=== PATIENT | male | born 1965 | race African-American/Black ===

== ENCOUNTER 2017-01-21 14:06 | Inpatient (IN) | payer OTHER ==
[2017-01-21 15:20] VITALS: BMI 28.7
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
[2017-01-21] MEDS ORDERED: MAG HYDROX/AL HYDROX/SIMETH 30 ML UNIT-DOSE CUP PO PRN (17:52)
[2017-01-21] MEDS ORDERED: hydrOXYzine PAMOATE 50 MG CAPSULE (FP) PO PRN (17:52)
[2017-01-21] MEDS ORDERED: chlordiazePOXIDE HCL 25 MG CAPSULE PO ONE (17:52)
[2017-01-21] MEDS ORDERED: guaiFENesin/D-METHORPHAN HB 10 ML UNIT-DOSE CUPS PO PRN (17:52)
[2017-01-21] MEDS ORDERED: chlordiazePOXIDE HCL 25 MG CAPSULE PO PRN (17:52)
[2017-01-21] MEDS ORDERED: MENTHOL/PHENOL 1 EACH UD MM PRN (17:52)
[2017-01-21] MEDS ORDERED: P-EPHED 60MG/TRIPROLIDI 2.5MG TABLET PO PRN (17:52)
[2017-01-21] MEDS ORDERED: IBUPROFEN 400 MG TABLET (FP) PO PRN (17:52)
[2017-01-21] MEDS ORDERED: MAGNESIUM CITRATE 300 ML BOTTLE PO PRN (17:52)
[2017-01-21] MEDS ORDERED: LOPERAMIDE HCL 2 MG CAPSULE PO PRN (17:52)
[2017-01-21] MEDS ORDERED: ACETAMINOPHEN 325 MG TABLET (FP) PO PRN (17:52)
[2017-01-21] MEDS ORDERED: MAGNESIUM HYDROX 2400MG/30ML ORAL SUSPENSION 30 ML CUP PO PRN (17:52)
[2017-01-21] MEDS ORDERED: NITROGLYCERIN SUBLINGUAL 1/150 0.4 MG TAB SL PRN (17:55)
[2017-01-21] MEDS ORDERED: ALBUTEROL SO4 2.5/IPRATROPIUM 0.5 INH SOL 3 ML VIAL.NEB. NEB SCH (18:00)
[2017-01-21] MEDS ORDERED: ALBUTEROL SO4 2.5/IPRATROPIUM 0.5 INH SOL 3 ML VIAL.NEB. NEB PRN (18:22)
[2017-01-21] MEDS: FUROSEMIDE 40 MG TABLET (FP) PO SCH (19:05)
[2017-01-21] MEDS: LISINOPRIL 10 MG TABLET (FP) PO SCH (19:05)
[2017-01-21] MEDS: ALBUTEROL SO4 2.5/IPRATROPIUM 0.5 INH SOL 3 ML VIAL.NEB. NEB SCH ×2 (19:07→23:40)
[2017-01-21] MEDS: BUDESONIDE/FORMETEROL FUMARATE 160/4.5 mcg INHALER IH SCH (22:11)
[2017-01-21] MEDS: TAMSULOSIN HCL 0.4 MG CAP.ER.24H (FP) PO SCH (22:11)
[2017-01-21] MEDS: ATORVASTATIN CA 40 MG TABLET (FP) PO SCH (22:11)
[2017-01-21] MEDS: chlordiazePOXIDE HCL 25 MG CAPSULE PO SCH (22:11)
[2017-01-21] MEDS: THIAMINE HCL 100 MG TABLET (FP) PO SCH (22:11)
[2017-01-21] MEDS: diphenhydrAMINE HCL 50 MG CAPSULE PO PRN (22:12)
[2017-01-21] MEDS: RANITIDINE HCL 150 MG TABLET (FP) PO SCH (22:12)
[2017-01-22] MEDS: chlordiazePOXIDE HCL 25 MG CAPSULE PO SCH ×4 (05:46→22:09)
--- NOTE | 2017-01-22 09:47 | CONSULT ---
[facility] Psychiatric Consult - Data Date of interview: 01/22/17 Admission source: [facility] Identifying data: This is 51 years old male with no psychiatric hospitalization history intoxicated with : Alcohol and Nicotine Substance Abuse History: - Smoking Cessation. Smoking history: Former smoker. Have you smoked in the past 12 months: No. Cigars Per Day: 0. Hx Chewing Tobacco Use: No. Initiated information on smoking cessation: No. - Substance & Tx. History. Hx Alcohol Use: Yes. Hx Substance Use: No. Substance Use Type : Alcohol. Hx Substance Use Treatment: Yes (Detox). - Substances Abused. Alcohol. Route: Oral. Frequency: Daily. Amount used: Vodka 2 quarts, Beer 2( 6packs). Age of first use: 14. Date of Last Use: 01/21/17 Medical History: COPD, Sarcoidisis hisotry, Obesity, Syncope history, DM, HTN, Asthma Psychiatric History: Maria Eugeniamt reports history of depression, reports no medications taking at this point Physical/Sexual Abuse/Trauma History: Denies Additional Comment: Observation. Detox Unit Care Protocol Mental Status Exam - Mental Status Exam Alert and Oriented to: Person Cognitive Function: Fair Patient Appearance: Unkempt Mood: Sad Affect: Flat Patient Behavior: Sedated Speech Pattern: Delayed Voice Loudness: Mildly Soft/Quiet Thought Process: Circumstantial Thought Disorder: Being Controlled Hallucinations: Denies Suicidal Ideation: Denies Insight/Judgement: Fair Sleep: Difficulty falling asleep Appetite: Weight gain Muscle strength/Tone: Mild Hypotonicity Gait/Station: Shuffling Additional Comments: Observation. Detox Unit Care Protocol Psychiatric Findings - Problem List ([place] 1, 2,3) (1) Alcohol dependence Current Visit: No Status: Acute (2) Alcohol dependence with uncomplicated withdrawal Current Visit: No Status: Acute (3) Cocaine dependence Current Visit: No Status: Acute Qualifiers: Substance use status: uncomplicated Qualified Code(s): F14.20 - Cocaine dependence, uncomplicated (4) Depression Current Visit: No Status: Acute (5) nicotine dependence Current Visit: No Status: Acute (6) Drug-induced mood disorder Current Visit: Yes Status: Acute - Initial Treatment Plan Initial Treatment Plan: Observation. Detox Unit Care Protocol
[2017-01-22 10:04] LABS: MCH 28.7 pg (25.7-33.7); MCHC 32.4 g/dl (32.0-35.9); MEAN CELL VOLUME 88.5 fl (80-96); MEAN PLT VOLUME 11.5 fl (7.5-11.1); PLATELET COUNT 78 K/MM3 (134-434); RDW 15.6 % (11.9-15.9); WHITE BLOOD COUNT 2.1 K/mm3 (4.0-10.0)
[2017-01-22] MEDS: ASPIRIN 81 MG CHEWABLE TABLETS PO SCH (10:19)
[2017-01-22] MEDS: FUROSEMIDE 40 MG TABLET (FP) PO SCH (10:19)
[2017-01-22] MEDS: ALBUTEROL SO4 2.5/IPRATROPIUM 0.5 INH SOL 3 ML VIAL.NEB. NEB SCH ×3 (10:19→23:28)
[2017-01-22] MEDS: PRENATAL VITAMINS W/ FOLIC ACID TABLET (FP) PO SCH (10:19)
[2017-01-22] MEDS: RANITIDINE HCL 150 MG TABLET (FP) PO SCH ×2 (10:19→22:09)
[2017-01-22] MEDS: BUDESONIDE/FORMETEROL FUMARATE 160/4.5 mcg INHALER IH SCH ×2 (10:20→22:10)
[2017-01-22] MEDS: LISINOPRIL 10 MG TABLET (FP) PO SCH (10:20)
[2017-01-22 10:42] LABS: ALBUMIN 3.3 g/dl (3.4-5.0); ALK PHOS 93 U/L (45-117); ANION GAP 13 (8-16); BILIRUBIN,TOTAL 0.7 mg/dL (0.2-1.0); CALCIUM 8.8 mg/dL (8.5-10.1); CO2 27 mmol/L (21-32); COCKROFT - GAULT 95.1; CREATININE 1.2 mg/dL (0.7-1.3); GLUCOSE,RANDOM 212 mg/dL (74-106); SGOT/AST 72 U/L (15-37); SGPT/ALT 160 U/L (12-78); TOT PROT 6.4 g/dl (6.4-8.2)
--- NOTE | 2017-01-22 10:52 | PN ---
S CIWA - CIWA Score Nausea/Vomitin-No Nausea/No Vomiting Muscle Tremors: 4-Moderate,w/Arms Extend Anxiety: 4-Mod. Anxious/Guarded Agitation: 3 Paroxysmal Sweats: 3 Orientation: 0-Oriented Tacttile Disturbances: 0-None Auditory Disturbances: 0-None Visual Disturbances: 0-None Headache: 0-None Present CIWA-Ar Total Score: 14 BHS Progress Note (SOAP) Subjective: Anxiety,tremors,sweating,interrupted sleep,restless Objective: 01/22/17 10:51 Vital Signs - 8 hr 01/22/17 01/22/17 01/22/17 03:35 06:38 09:47 Temperature 97.4 F L 97.7 F Pulse Rate 83 95 H Respiratory 18 18 20 Rate Blood Pressure 115/84 114/75 Laboratory Tests 01/22/17 01/22/17 08:00 08:00 WBC 2.1 L D RBC 5.47 Hgb 15.7 D Hct 48.4 MCV 88.5 MCHC 32.4 RDW 15.6 D Plt Count 78 L D MPV 11.5 H Sodium 139 Potassium 3.5 D Chloride 99 labs noted Assessment: 01/22/17 10:52 Withdrawal sx. Plan: Continue detox
--- NOTE | 2017-01-22 11:32 | EKG ---
Test Reason : Blood Pressure : / mmHG Vent. Rate : 098 BPM Atrial Rate : 098 BPM P-R Int : 184 ms QRS Dur : 104 ms QT Int : 352 ms P-R-T Axes : 028 099 062 degrees QTc Int : 449 ms SINUS RHYTHM WITH SINUS ARRHYTHMIA WITH OCCASIONAL PREMATURE VENTRICULAR COMPLEXES RIGHTWARD AXIS NONSPECIFIC ST ABNORMALITY ABNORMAL ECG WHEN COMPARED WITH ECG OF 21-SEP-2011 20:11, PREMATURE VENTRICULAR COMPLEXES ARE NOW PRESENT Confirmed by ANTONINO FITZGERALD, MARTA ([id number]) on 01/22/2017 11:32:25 AM Referred By: Confirmed By:MARTA MUÑIZ MD
[2017-01-22] MEDS: ALBUTEROL SO4 6.7 GM HFA INHALER IH PRN ×2 (17:12→22:13)
[2017-01-22 17:15] LABS: URINE APPEARANCE CLEAR; URINE BILIRUBIN NEGATIVE (NEGATIVE); URINE BLOOD NEGATIVE (NEGATIVE); URINE COLOR LTYELLOW; URINE GLUCOSE (UA) 3+ (NEGATIVE); URINE KETONE NEGATIVE (NEGATIVE); URINE LEUK ESTERASE NEGATIVE (NEGATIVE); URINE NITRITE NEGATIVE (NEGATIVE); URINE PROTEIN NEGATIVE (NEGATIVE); URINE UROBILINOGEN NEGATIVE E.U./dl (0.2-1.0)
[2017-01-22] MEDS: TAMSULOSIN HCL 0.4 MG CAP.ER.24H (FP) PO SCH (22:09)
[2017-01-22] MEDS: THIAMINE HCL 100 MG TABLET (FP) PO SCH (22:09)
[2017-01-22] MEDS: ATORVASTATIN CA 40 MG TABLET (FP) PO SCH (22:09)
[2017-01-22] MEDS: diphenhydrAMINE HCL 50 MG CAPSULE PO PRN (22:09)
[2017-01-23] MEDS: chlordiazePOXIDE HCL 25 MG CAPSULE PO SCH ×3 (05:53→17:28)
[2017-01-23] MEDS: DOCUSATE SODIUM 100 MG CAPSULE (FP) PO SCH ×3 (05:53→22:13)
[2017-01-23] MEDS: ALBUTEROL SO4 2.5/IPRATROPIUM 0.5 INH SOL 3 ML VIAL.NEB. NEB SCH ×3 (05:54→18:52)
[2017-01-23] MEDS: ASPIRIN 81 MG CHEWABLE TABLETS PO SCH (10:14)
[2017-01-23] MEDS: PRENATAL VITAMINS W/ FOLIC ACID TABLET (FP) PO SCH (10:14)
[2017-01-23] MEDS: RANITIDINE HCL 150 MG TABLET (FP) PO SCH ×2 (10:14→22:13)
[2017-01-23] MEDS: LISINOPRIL 10 MG TABLET (FP) PO SCH (10:15)
[2017-01-23] MEDS: FUROSEMIDE 40 MG TABLET (FP) PO SCH (10:15)
[2017-01-23] MEDS: BUDESONIDE/FORMETEROL FUMARATE 160/4.5 mcg INHALER IH SCH ×2 (10:15→22:12)
[2017-01-23] MEDS: ALBUTEROL SO4 6.7 GM HFA INHALER IH PRN (10:15)
--- NOTE | 2017-01-23 11:02 | PN ---
S CIWA - CIWA Score Nausea/Vomitin-No Nausea/No Vomiting Muscle Tremors: 4-Moderate,w/Arms Extend Anxiety: 4-Mod. Anxious/Guarded Agitation: 3 Paroxysmal Sweats: 3 Orientation: 0-Oriented Tacttile Disturbances: 0-None Auditory Disturbances: 0-None Visual Disturbances: 0-None Headache: 0-None Present CIWA-Ar Total Score: 14 BHS Progress Note (SOAP) Subjective: Sweating,interrupted sleep,anxiety,tremors,restless Objective: 01/23/17 11:01 Vital Signs - 8 hr 01/23/17 01/23/17 06:38 09:45 Temperature 96.8 F L 95.5 F L Pulse Rate 94 H 94 H Respiratory 18 18 Rate Blood Pressure 124/81 114/71 Laboratory Tests 01/22/17 01/22/17 01/22/17 08:00 08:00 08:00 WBC 2.1 L D RBC 5.47 Hgb 15.7 D Hct 48.4 MCV 88.5 MCHC 32.4 RDW 15.6 D Plt Count 78 L D MPV 11.5 H Sodium 139 Potassium 3.5 D Chloride 99 Carbon Dioxide 27 Anion Gap 13 BUN 14 D Creatinine 1.2 D Creat Clearance w eGFR > 60 Random Glucose 212 H D Calcium 8.8 Total Bilirubin 0.7 D AST 72 H D ALT 160 H D Alkaline Phosphatase 93 Total Protein 6.4 Albumin 3.3 L Urine Color Urine Appearance Urine pH Ur Specific [place] Urine Protein Urine Glucose (UA) Urine Ketones Urine Blood Urine Nitrite Urine Bilirubin Urine Urobilinogen Ur Leukocyte Esterase RPR Titer Nonreactive 01/22/17 09:30 WBC RBC Hgb Hct MCV MCHC RDW Plt Count MPV Sodium Potassium Chloride Carbon Dioxide Anion Gap BUN Creatinine Creat Clearance w eGFR Random Glucose Calcium Total Bilirubin AST ALT Alkaline Phosphatase Total Protein Albumin Urine Color Ltyellow Urine Appearance Clear Urine pH 6.0 Ur Specific [place] 1.026 Urine Protein Negative Urine Glucose (UA) 3+ H Urine Ketones Negative Urine Blood Negative Urine Nitrite Negative Urine Bilirubin Negative Urine Urobilinogen Negative Ur Leukocyte Esterase Negative RPR Titer labs noted Assessment: 01/23/17 11:01 Withdrawal sx. Plan: Continue detox
[2017-01-23] MEDS: THIAMINE HCL 100 MG TABLET (FP) PO SCH (22:12)
[2017-01-23] MEDS: ATORVASTATIN CA 40 MG TABLET (FP) PO SCH (22:13)
[2017-01-23] MEDS: chlordiazePOXIDE 5 MG CAPSULE PO SCH (22:13)
[2017-01-23] MEDS: TAMSULOSIN HCL 0.4 MG CAP.ER.24H (FP) PO SCH (22:13)
[2017-01-23] MEDS: diphenhydrAMINE HCL 50 MG CAPSULE PO PRN (22:14)
[2017-01-24] MEDS: DOCUSATE SODIUM 100 MG CAPSULE (FP) PO SCH ×3 (06:01→22:17)
[2017-01-24] MEDS: chlordiazePOXIDE 5 MG CAPSULE PO SCH ×3 (06:01→17:13)
[2017-01-24] MEDS: RANITIDINE HCL 150 MG TABLET (FP) PO SCH ×2 (10:03→22:17)
[2017-01-24] MEDS: PRENATAL VITAMINS W/ FOLIC ACID TABLET (FP) PO SCH (10:03)
[2017-01-24] MEDS: FUROSEMIDE 40 MG TABLET (FP) PO SCH (10:04)
[2017-01-24] MEDS: ASPIRIN 81 MG CHEWABLE TABLETS PO SCH (10:04)
[2017-01-24] MEDS: ALBUTEROL SO4 2.5/IPRATROPIUM 0.5 INH SOL 3 ML VIAL.NEB. NEB SCH ×4 (10:04→23:16)
[2017-01-24] MEDS: BUDESONIDE/FORMETEROL FUMARATE 160/4.5 mcg INHALER IH SCH ×2 (10:05→22:16)
[2017-01-24] MEDS: LISINOPRIL 10 MG TABLET (FP) PO SCH (10:05)
--- NOTE | 2017-01-24 16:32 | PN ---
BHS Progress Note (SOAP) Subjective: Sweating,interrupted sleep,restless Objective: 01/24/17 16:31 Vital Signs - 8 hr 01/24/17 09:38 Temperature 97 F L Pulse Rate 90 Respiratory 20 Rate Blood Pressure 119/86 Laboratory Tests 01/22/17 01/22/17 01/22/17 08:00 08:00 08:00 WBC 2.1 L D RBC 5.47 Hgb 15.7 D Hct 48.4 MCV 88.5 MCHC 32.4 RDW 15.6 D Plt Count 78 L D MPV 11.5 H Sodium 139 Potassium 3.5 D Chloride 99 Carbon Dioxide 27 Anion Gap 13 BUN 14 D Creatinine 1.2 D Creat Clearance w eGFR > 60 Random Glucose 212 H D Calcium 8.8 Total Bilirubin 0.7 D AST 72 H D ALT 160 H D Alkaline Phosphatase 93 Total Protein 6.4 Albumin 3.3 L Urine Color Urine Appearance Urine pH Ur Specific [place] Urine Protein Urine Glucose (UA) Urine Ketones Urine Blood Urine Nitrite Urine Bilirubin Urine Urobilinogen Ur Leukocyte Esterase RPR Titer Nonreactive 01/22/17 09:30 WBC RBC Hgb Hct MCV MCHC RDW Plt Count MPV Sodium Potassium Chloride Carbon Dioxide Anion Gap BUN Creatinine Creat Clearance w eGFR Random Glucose Calcium Total Bilirubin AST ALT Alkaline Phosphatase Total Protein Albumin Urine Color Ltyellow Urine Appearance Clear Urine pH 6.0 Ur Specific [place] 1.026 Urine Protein Negative Urine Glucose (UA) 3+ H Urine Ketones Negative Urine Blood Negative Urine Nitrite Negative Urine Bilirubin Negative Urine Urobilinogen Negative Ur Leukocyte Esterase Negative RPR Titer labs noted Assessment: 01/24/17 16:31 Withdrawal sx. Plan: Continue detox
[2017-01-24] MEDS: THIAMINE HCL 100 MG TABLET (FP) PO SCH (22:16)
[2017-01-24] MEDS: TAMSULOSIN HCL 0.4 MG CAP.ER.24H (FP) PO SCH (22:17)
[2017-01-24] MEDS: ATORVASTATIN CA 40 MG TABLET (FP) PO SCH (22:17)
[2017-01-24] MEDS: chlordiazePOXIDE HCL 10 MG CAPSULE PO SCH (22:17)
[2017-01-24] MEDS: diphenhydrAMINE HCL 50 MG CAPSULE PO PRN (22:17)
[2017-01-24] MEDS: ALBUTEROL SO4 6.7 GM HFA INHALER IH PRN (22:19)
[2017-01-25] MEDS: chlordiazePOXIDE HCL 10 MG CAPSULE PO SCH (05:49)
[2017-01-25] MEDS: DOCUSATE SODIUM 100 MG CAPSULE (FP) PO SCH (05:49)
--- NOTE | 2017-01-25 08:36 | DS ---
[facility] Detox Discharge Summary Admission Date: 01/21/17 Discharge Date: 01/25/17 - History Present History: Alcohol Dependence Pertinent Past History: Sarcoidosis of the Lungs HTN - Physical Exam Results Vital Signs: Vital Signs Temperature 98.0 F 01/25/17 06:25 Pulse Rate 85 01/25/17 06:25 Respiratory Rate 18 01/25/17 06:25 Blood Pressure 118/84 01/25/17 06:25 O2 Sat by Pulse Oximetry (%) Pertinent Admission Physical Exam Findings: Withdrawal sx. Laboratory Last Values WBC 2.1 K/mm3 (4.0-10.0) L D 01/22/17 08:00 RBC 5.47 M/mm3 (4.00-5.60) 01/22/17 08:00 Hgb 15.7 GM/dL (11.7-16.9) D 01/22/17 08:00 Hct 48.4 % (35.4-49) 01/22/17 08:00 MCV 88.5 fl (80-96) 01/22/17 08:00 MCHC 32.4 g/dl (32.0-35.9) 01/22/17 08:00 RDW 15.6 % (11.9-15.9) D 01/22/17 08:00 Plt Count 78 K/MM3 (134-434) L D 01/22/17 08:00 MPV 11.5 fl (7.5-11.1) H 01/22/17 08:00 Sodium 139 mmol/L (136-145) 01/22/17 08:00 Potassium 3.5 mmol/L (3.5-5.1) D 01/22/17 08:00 Chloride 99 mmol/L (98-107) 01/22/17 08:00 Carbon Dioxide 27 mmol/L (21-32) 01/22/17 08:00 Anion Gap 13 (8-16) 01/22/17 08:00 BUN 14 mg/dL (7-18) D 01/22/17 08:00 Creatinine 1.2 mg/dL (0.7-1.3) D 01/22/17 08:00 Creat Clearance w eGFR > 60 (>60) 01/22/17 08:00 Random Glucose 212 mg/dL (74-106) H D 01/22/17 08:00 Calcium 8.8 mg/dL (8.5-10.1) 01/22/17 08:00 Total Bilirubin 0.7 mg/dL (0.2-1.0) D 01/22/17 08:00 AST 72 U/L (15-37) H D 01/22/17 08:00 ALT 160 U/L (12-78) H D 01/22/17 08:00 Alkaline Phosphatase 93 U/L (45-117) 01/22/17 08:00 Total Protein 6.4 g/dl (6.4-8.2) 01/22/17 08:00 Albumin 3.3 g/dl (3.4-5.0) L 01/22/17 08:00 Urine Color Ltyellow 01/22/17 09:30 Urine Appearance Clear 01/22/17 09:30 Urine pH 6.0 (5.0-8.0) 01/22/17 09:30 Ur Specific [place] 1.026 (1.001-1.035) 01/22/17 09:30 Urine Protein Negative (NEGATIVE) 01/22/17 09:30 Urine Glucose (UA) 3+ (NEGATIVE) H 01/22/17 09:30 Urine Ketones Negative (NEGATIVE) 01/22/17 09:30 Urine Blood Negative (NEGATIVE) 01/22/17 09:30 Urine Nitrite Negative (NEGATIVE) 01/22/17 09:30 Urine Bilirubin Negative (NEGATIVE) 01/22/17 09:30 Urine Urobilinogen Negative E.U./dl (0.2-1.0) 01/22/17 09:30 Ur Leukocyte Esterase Negative (NEGATIVE) 01/22/17 09:30 RPR Titer Nonreactive (NONREACTIVE) 01/22/17 08:00 labs noted - Treatment Hospital Course: Detox Protocol Followed, Detoxed Safely, Responded well, Discharged Condition Good, Rehab Referral Accepted Patient has Accepted a Rehab Referral to: [facility] - Medication Discharge Medications: Ambulatory Orders Aspirin [ASA -] 81 mg PO DAILY #30 tab.chew 05/31/14 Nitroglycerin Sublingual [Nitrostat -] 0.4 mg SL PRN PRN #14 tab 05/31/14 Salmeterol/Fluticasone [Advair 500Mcg/50Mcg -] 1 inh PO BID #1 inh 05/31/14 Atorvastatin Ca [Lipitor] 80 mg PO HS 03/16/16 Docusate Sodium [Colace -] 100 mg PO TID 03/16/16 Esomeprazole Magnesium [Nexium] 40 mg PO DAILY 03/16/16 Furosemide [Lasix -] 40 mg PO DAILY 03/16/16 Lisinopril [Prinivil] 5 mg PO DAILY 03/16/16 Tamsulosin HCl [Flomax] 0.4 mg PO DAILY 03/16/16 Albuterol Sulfate Inhaler - [Ventolin HFA Inhaler -] 2 inh PO PRN PRN 03/17/16 Albuterol 2.5/Ipratropium 0.5 [Duoneb -] 1 amp NEB QID #120 amp 03/21/16 Amox-Tr/K Cl [Augmentin 875-125mg Tablet -] 1 tab PO BID@0800,1730 #10 tablet Prednisone [Deltasone -] 40 mg PO DAILY #60 tablet 03/21/16 Tiotropium [place] [Spiriva] 1 inh PO DAILY #1 inh 03/21/16 - Diagnosis (1) Alcohol dependence with uncomplicated withdrawal Current Visit: Yes Status: Acute (2) Essential hypertension Current Visit: Yes Status: Chronic (3) Sarcoidosis of lung Current Visit: Yes Status: Acute (4) Drug-induced mood disorder Current Visit: Yes Status: Acute - AMA Did Patient Leave Against Medical Advice: No
[2017-01-25] MEDS: FUROSEMIDE 40 MG TABLET (FP) PO SCH (09:05)
[2017-01-25] MEDS: RANITIDINE HCL 150 MG TABLET (FP) PO SCH (09:05)
[2017-01-25] MEDS: PRENATAL VITAMINS W/ FOLIC ACID TABLET (FP) PO SCH (09:05)
[2017-01-25] MEDS: ASPIRIN 81 MG CHEWABLE TABLETS PO SCH (09:05)
[2017-01-25] MEDS: LISINOPRIL 10 MG TABLET (FP) PO SCH (09:06)
[2017-01-25 09:18] VITALS: BP 130/82; PULSE 95; TEMP 96.4
== END 2017-01-25 09:10 | disposition home or self-care (01) | DRG 897 ==
LOC: YASAS 14:06 → Y3N 17:28
PROVIDERS: ADMIT Internal Medicine; ATTEND Internal Medicine
PROC: HZ2ZZZZ Detoxification Services for Substance Abuse Treatment (ICD-10-PCS; principal; 2017-01-25)
DX: F10.230 Alcohol dependence with withdrawal, uncomplicated (principal); F14.20 Cocaine dependence, uncomplicated; F19.24 Other psychoactive substance dependence with psychoactive substance-induced mood disorder; F17.210 Nicotine dependence, cigarettes, uncomplicated; I10 Essential (primary) hypertension; D86.0 Sarcoidosis of lung
CPT/HCPCS: 36415; 80053; 81003; 85027; 86593; 93005; 93010; 94640

== ENCOUNTER 2017-02-12 10:34 | Inpatient (IN) | payer OTHER ==
[2017-02-12 10:58] VITALS: BMI 29.9
--- NOTE | 2017-02-12 12:20 | HP ---
AN FITZGERALD Rehab Assess/Revision - Admission History Admitted to Rehab from: [facility] [place] (DETOXED 01/21/17 TO 01/25/17) Date of Admission to Rehab: 02/12/17 - Vital signs Vital Signs: Vital Signs Period Temp Pulse Resp BP Sys/Irene Pulse Ox Last 24 Hr 97 F 101 20 160/100 - Findings Detox History & Physical reviewed: Yes Concur with findings: Yes Comments/Additional Findings: PT RETURNED TO F/U WITH REHAB RECOMMENDATION. ALERT O X 3 . NAD. PLAN: ADMIT TO REHAB
[2017-02-12] MEDS ORDERED: MAGNESIUM CITRATE 300 ML BOTTLE PO PRN (12:35)
[2017-02-12] MEDS ORDERED: guaiFENesin/D-METHORPHAN HB 10 ML UNIT-DOSE CUPS PO PRN (12:35)
[2017-02-12] MEDS ORDERED: MENTHOL/PHENOL 1 EACH UD MM PRN (12:35)
[2017-02-12] MEDS ORDERED: LOPERAMIDE HCL 2 MG CAPSULE PO PRN (12:35)
[2017-02-12] MEDS ORDERED: hydrOXYzine PAMOATE 25 MG CAPSULE (FP) PO PRN (12:35)
[2017-02-12] MEDS ORDERED: P-EPHED 60MG/TRIPROLIDI 2.5MG TABLET PO PRN (12:35)
[2017-02-12] MEDS ORDERED: ALBUTEROL SO4 2.5/IPRATROPIUM 0.5 INH SOL 3 ML VIAL.NEB. NEB PRN (12:45)
[2017-02-12] MEDS ORDERED: NITROGLYCERIN SUBLINGUAL 1/150 0.4 MG TAB SL PRN (12:45)
[2017-02-12] MEDS: LISINOPRIL 10 MG TABLET (FP) PO SCH (15:35)
[2017-02-12] MEDS: TAMSULOSIN HCL 0.4 MG CAP.ER.24H (FP) PO SCH (15:35)
[2017-02-12] MEDS: ACLIDINIUM BROMIDE 400 MCG/INH AERO.POWD IH SCH ×2 (15:36→21:24)
[2017-02-12 16:56] LABS: URINE APPEARANCE CLEAR; URINE BILIRUBIN NEGATIVE (NEGATIVE); URINE BLOOD NEGATIVE (NEGATIVE); URINE COLOR LTYELLOW; URINE GLUCOSE (UA) 3+ (NEGATIVE); URINE KETONE NEGATIVE (NEGATIVE); URINE LEUK ESTERASE NEGATIVE (NEGATIVE); URINE NITRITE NEGATIVE (NEGATIVE); URINE PROTEIN NEGATIVE (NEGATIVE); URINE UROBILINOGEN NEGATIVE E.U./dl (0.2-1.0)
[2017-02-12] MEDS: diphenhydrAMINE HCL 50 MG CAPSULE PO PRN (21:23)
[2017-02-12] MEDS: THIAMINE HCL 100 MG TABLET (FP) PO SCH (21:23)
[2017-02-12] MEDS: RANITIDINE HCL 150 MG TABLET (FP) PO SCH (21:23)
[2017-02-13] MEDS: IBUPROFEN 400 MG TABLET (FP) PO PRN (06:17)
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
[2017-02-13] MEDS: TAMSULOSIN HCL 0.4 MG CAP.ER.24H (FP) PO SCH (08:38)
[2017-02-13] MEDS ORDERED: PT OWN MED DRAWER 7, Y5N ONE ×2 (08:53→21:27)
[2017-02-13] MEDS: LISINOPRIL 10 MG TABLET (FP) PO SCH (10:37)
[2017-02-13] MEDS: RANITIDINE HCL 150 MG TABLET (FP) PO SCH ×2 (10:37→21:26)
[2017-02-13] MEDS: ASPIRIN 81 MG CHEWABLE TABLETS PO SCH (10:37)
[2017-02-13] MEDS: ACLIDINIUM BROMIDE 400 MCG/INH AERO.POWD IH SCH ×2 (10:37→21:26)
[2017-02-13] MEDS: PRENATAL VITAMINS W/ FOLIC ACID TABLET (FP) PO SCH (10:39)
[2017-02-13] MEDS: ALBUTEROL SO4 0.083% IH SOL 2.5 MG/3 ML VIAL.NEB. NEB PRN (14:03)
[2017-02-13] MEDS: THIAMINE HCL 100 MG TABLET (FP) PO SCH (21:26)
[2017-02-13] MEDS: traZODone HCL 100 MG TABLET (FP) PO SCH (21:43)
--- NOTE | 2017-02-13 23:08 | EKG ---
Test Reason : Blood Pressure : / mmHG Vent. Rate : 087 BPM Atrial Rate : 087 BPM P-R Int : 192 ms QRS Dur : 096 ms QT Int : 370 ms P-R-T Axes : 069 106 068 degrees QTc Int : 445 ms SINUS RHYTHM WITH PREMATURE SUPRAVENTRICULAR COMPLEXES RIGHTWARD AXIS INCOMPLETE RIGHT BUNDLE BRANCH BLOCK NONSPECIFIC ST AND T WAVE ABNORMALITY ABNORMAL ECG WHEN COMPARED WITH ECG OF 21-JAN-2017 18:12, PREMATURE VENTRICULAR COMPLEXES ARE NO LONGER PRESENT PREMATURE SUPRAVENTRICULAR COMPLEXES ARE NOW PRESENT Confirmed by HILDA MORAN MD ([id number]) on 02/13/2017 11:07:36 PM Referred By: Pennie Bright Confirmed By:HILDA MORAN MD
[2017-02-14] MEDS: ALBUTEROL SO4 0.083% IH SOL 2.5 MG/3 ML VIAL.NEB. NEB PRN ×2 (03:58→17:13)
[2017-02-14] MEDS: IBUPROFEN 400 MG TABLET (FP) PO PRN (06:48)
[2017-02-14] MEDS: TAMSULOSIN HCL 0.4 MG CAP.ER.24H (FP) PO SCH (09:30)
[2017-02-14] MEDS: ASPIRIN 81 MG CHEWABLE TABLETS PO SCH (10:09)
[2017-02-14] MEDS: ACLIDINIUM BROMIDE 400 MCG/INH AERO.POWD IH SCH ×2 (10:09→21:31)
[2017-02-14] MEDS: LISINOPRIL 10 MG TABLET (FP) PO SCH (10:09)
[2017-02-14] MEDS: RANITIDINE HCL 150 MG TABLET (FP) PO SCH ×2 (10:09→21:30)
[2017-02-14] MEDS: PRENATAL VITAMINS W/ FOLIC ACID TABLET (FP) PO SCH (10:09)
[2017-02-14] MEDS: THIAMINE HCL 100 MG TABLET (FP) PO SCH (21:30)
[2017-02-14] MEDS: diphenhydrAMINE HCL 50 MG CAPSULE PO PRN (21:30)
[2017-02-14] MEDS: traZODone HCL 100 MG TABLET (FP) PO SCH (21:30)
[2017-02-14] MEDS ORDERED: PT OWN MED DRAWER 7, Y5N ONE (21:31)
[2017-02-14] MEDS: ALBUTEROL SO4 6.7 GM HFA INHALER IH PRN (21:32)
[2017-02-14] MEDS: MAGNESIUM HYDROX 2400MG/30ML ORAL SUSPENSION 30 ML CUP PO PRN (22:03)
[2017-02-15] MEDS: ACETAMINOPHEN 325 MG TABLET (FP) PO PRN (06:46)
[2017-02-15] MEDS: TAMSULOSIN HCL 0.4 MG CAP.ER.24H (FP) PO SCH (07:58)
[2017-02-15] MEDS: PRENATAL VITAMINS W/ FOLIC ACID TABLET (FP) PO SCH (10:17)
[2017-02-15] MEDS: LISINOPRIL 10 MG TABLET (FP) PO SCH (10:17)
[2017-02-15] MEDS: RANITIDINE HCL 150 MG TABLET (FP) PO SCH ×2 (10:17→21:26)
[2017-02-15] MEDS: ASPIRIN 81 MG CHEWABLE TABLETS PO SCH (10:17)
[2017-02-15] MEDS: ACLIDINIUM BROMIDE 400 MCG/INH AERO.POWD IH SCH (10:18)
[2017-02-15] MEDS: ALBUTEROL SO4 6.7 GM HFA INHALER IH PRN (10:19)
[2017-02-15] MEDS: ALBUTEROL SO4 0.083% IH SOL 2.5 MG/3 ML VIAL.NEB. NEB PRN (15:03)
[2017-02-15] MEDS ORDERED: ALBUTEROL SO4 2.5/IPRATROPIUM 0.5 INH SOL 3 ML VIAL.NEB. NEB ONE (15:25)
[2017-02-15] MEDS ORDERED: predniSONE 20 MG TABLET (UD) PO ONE (15:26)
--- NOTE | 2017-02-15 15:35 | PN ---
S Progress Note (SOAP) Subjective: I'm sob Objective: 02/15/17 15:30 bp 146/91, p 80/m , T97.9, r 22/m , po2 89% on ra lung decreased air entry , wheezes after tx with duoneb 97% Assessment: 02/15/17 15:35 acute exacerbation of B asthma h/o sarcoidosis Plan: increase fluids prednisone 40mg x d ays , then prednisone 30mg x 3 d d/c justina
[2017-02-15] MEDS ORDERED: PT OWN MED DRAWER 7, Y5N ONE ×2 (15:52→21:27)
[2017-02-15] MEDS: ALBUTEROL SO4 2.5/IPRATROPIUM 0.5 INH SOL 3 ML VIAL.NEB. NEB PRN (20:07)
[2017-02-15] MEDS: traZODone HCL 100 MG TABLET (FP) PO SCH (21:26)
[2017-02-15] MEDS: THIAMINE HCL 100 MG TABLET (FP) PO SCH (21:27)
[2017-02-16] MEDS: ALBUTEROL SO4 2.5/IPRATROPIUM 0.5 INH SOL 3 ML VIAL.NEB. NEB PRN (04:36)
[2017-02-16] MEDS: TAMSULOSIN HCL 0.4 MG CAP.ER.24H (FP) PO SCH (08:14)
[2017-02-16] MEDS ORDERED: PT OWN MED DRAWER 7, Y5N ONE (09:04)
[2017-02-16] MEDS ORDERED: FUROSEMIDE 40 MG TABLET (FP) PO SCH (10:00)
[2017-02-16] MEDS: LISINOPRIL 10 MG TABLET (FP) PO SCH (10:35)
[2017-02-16] MEDS: PRENATAL VITAMINS W/ FOLIC ACID TABLET (FP) PO SCH (10:35)
[2017-02-16] MEDS: predniSONE 20 MG TABLET (UD) PO SCH (10:35)
[2017-02-16] MEDS: RANITIDINE HCL 150 MG TABLET (FP) PO SCH ×2 (10:35→21:49)
[2017-02-16] MEDS: ASPIRIN 81 MG CHEWABLE TABLETS PO SCH (10:36)
[2017-02-16] MEDS: CYANOCOBALAMIN 1,000 MCG TABLET (FP) PO SCH (10:37)
[2017-02-16] MEDS: traZODone HCL 100 MG TABLET (FP) PO SCH (21:49)
[2017-02-16] MEDS: THIAMINE HCL 100 MG TABLET (FP) PO SCH (21:49)
[2017-02-16] MEDS: diphenhydrAMINE HCL 50 MG CAPSULE PO PRN (21:49)
[2017-02-17] MEDS: FUROSEMIDE 40 MG TABLET (FP) PO SCH (06:25)
[2017-02-17] MEDS: TAMSULOSIN HCL 0.4 MG CAP.ER.24H (FP) PO SCH (08:18)
[2017-02-17] MEDS: ALBUTEROL SO4 2.5/IPRATROPIUM 0.5 INH SOL 3 ML VIAL.NEB. NEB PRN (08:45)
[2017-02-17] MEDS: MAG HYDROX/AL HYDROX/SIMETH 30 ML UNIT-DOSE CUP PO PRN (08:59)
[2017-02-17] MEDS ORDERED: PT OWN MED DRAWER 7, Y5N ONE (09:12)
[2017-02-17] MEDS: predniSONE 20 MG TABLET (UD) PO SCH (10:50)
[2017-02-17] MEDS: PRENATAL VITAMINS W/ FOLIC ACID TABLET (FP) PO SCH (10:50)
[2017-02-17] MEDS: RANITIDINE HCL 150 MG TABLET (FP) PO SCH ×2 (10:50→21:48)
[2017-02-17] MEDS: CYANOCOBALAMIN 1,000 MCG TABLET (FP) PO SCH (10:50)
[2017-02-17] MEDS: LISINOPRIL 10 MG TABLET (FP) PO SCH (10:50)
[2017-02-17] MEDS: ASPIRIN 81 MG CHEWABLE TABLETS PO SCH (10:51)
[2017-02-17] MEDS: THIAMINE HCL 100 MG TABLET (FP) PO SCH (21:48)
[2017-02-17] MEDS: traZODone HCL 100 MG TABLET (FP) PO SCH (21:48)
[2017-02-17] MEDS: diphenhydrAMINE HCL 50 MG CAPSULE PO PRN (21:49)
[2017-02-18] MEDS: FUROSEMIDE 40 MG TABLET (FP) PO SCH (06:39)
[2017-02-18] MEDS: TAMSULOSIN HCL 0.4 MG CAP.ER.24H (FP) PO SCH (08:13)
[2017-02-18] MEDS ORDERED: PT OWN MED DRAWER 7, Y5N ONE (09:02)
[2017-02-18] MEDS: ASPIRIN 81 MG CHEWABLE TABLETS PO SCH (10:16)
[2017-02-18] MEDS: PRENATAL VITAMINS W/ FOLIC ACID TABLET (FP) PO SCH (10:16)
[2017-02-18] MEDS: LISINOPRIL 10 MG TABLET (FP) PO SCH (10:16)
[2017-02-18] MEDS: CYANOCOBALAMIN 1,000 MCG TABLET (FP) PO SCH (10:16)
[2017-02-18] MEDS: predniSONE 10 MG TABLET (UD) PO SCH (10:16)
[2017-02-18] MEDS: RANITIDINE HCL 150 MG TABLET (FP) PO SCH ×2 (10:16→21:10)
[2017-02-18] MEDS: THIAMINE HCL 100 MG TABLET (FP) PO SCH (21:10)
[2017-02-18] MEDS: traZODone HCL 100 MG TABLET (FP) PO SCH (21:10)
[2017-02-18] MEDS: diphenhydrAMINE HCL 50 MG CAPSULE PO PRN (21:10)
[2017-02-19] MEDS: FUROSEMIDE 40 MG TABLET (FP) PO SCH (06:20)
[2017-02-19] MEDS: TAMSULOSIN HCL 0.4 MG CAP.ER.24H (FP) PO SCH (08:38)
[2017-02-19] MEDS ORDERED: PT OWN MED DRAWER 7, Y5N ONE (09:07)
[2017-02-19] MEDS: PRENATAL VITAMINS W/ FOLIC ACID TABLET (FP) PO SCH (10:37)
[2017-02-19] MEDS: RANITIDINE HCL 150 MG TABLET (FP) PO SCH ×2 (10:37→21:24)
[2017-02-19] MEDS: predniSONE 10 MG TABLET (UD) PO SCH (10:37)
[2017-02-19] MEDS: CYANOCOBALAMIN 1,000 MCG TABLET (FP) PO SCH (10:38)
[2017-02-19] MEDS: ASPIRIN 81 MG CHEWABLE TABLETS PO SCH (10:38)
[2017-02-19] MEDS: LISINOPRIL 10 MG TABLET (FP) PO SCH (10:38)
[2017-02-19] MEDS: diphenhydrAMINE HCL 50 MG CAPSULE PO PRN (21:24)
[2017-02-19] MEDS: traZODone HCL 100 MG TABLET (FP) PO SCH (21:24)
[2017-02-19] MEDS: THIAMINE HCL 100 MG TABLET (FP) PO SCH (21:24)
[2017-02-20] MEDS: FUROSEMIDE 40 MG TABLET (FP) PO SCH (06:24)
[2017-02-20] MEDS: TAMSULOSIN HCL 0.4 MG CAP.ER.24H (FP) PO SCH (08:50)
[2017-02-20] MEDS: PRENATAL VITAMINS W/ FOLIC ACID TABLET (FP) PO SCH (09:50)
[2017-02-20] MEDS: predniSONE 10 MG TABLET (UD) PO SCH (09:50)
[2017-02-20] MEDS: CYANOCOBALAMIN 1,000 MCG TABLET (FP) PO SCH (09:50)
[2017-02-20] MEDS: RANITIDINE HCL 150 MG TABLET (FP) PO SCH ×2 (09:51→21:21)
[2017-02-20] MEDS: LISINOPRIL 10 MG TABLET (FP) PO SCH (09:51)
[2017-02-20] MEDS: ASPIRIN 81 MG CHEWABLE TABLETS PO SCH (09:51)
[2017-02-20] MEDS: IBUPROFEN 400 MG TABLET (FP) PO PRN (09:51)
[2017-02-20] MEDS: THIAMINE HCL 100 MG TABLET (FP) PO SCH (21:20)
[2017-02-20] MEDS: traZODone HCL 100 MG TABLET (FP) PO SCH (21:20)
[2017-02-20] MEDS: diphenhydrAMINE HCL 50 MG CAPSULE PO PRN (21:20)
[2017-02-21] MEDS: FUROSEMIDE 40 MG TABLET (FP) PO SCH (06:24)
[2017-02-21] MEDS: TAMSULOSIN HCL 0.4 MG CAP.ER.24H (FP) PO SCH (09:30)
[2017-02-21] MEDS: PRENATAL VITAMINS W/ FOLIC ACID TABLET (FP) PO SCH (10:16)
[2017-02-21] MEDS: RANITIDINE HCL 150 MG TABLET (FP) PO SCH ×2 (10:16→21:49)
[2017-02-21] MEDS: CYANOCOBALAMIN 1,000 MCG TABLET (FP) PO SCH (10:17)
[2017-02-21] MEDS: LISINOPRIL 10 MG TABLET (FP) PO SCH (10:17)
[2017-02-21] MEDS: ASPIRIN 81 MG CHEWABLE TABLETS PO SCH (10:17)
[2017-02-21] MEDS: THIAMINE HCL 100 MG TABLET (FP) PO SCH (21:49)
[2017-02-21] MEDS: diphenhydrAMINE HCL 50 MG CAPSULE PO PRN (21:49)
[2017-02-21] MEDS: traZODone HCL 100 MG TABLET (FP) PO SCH (21:49)
[2017-02-22] MEDS: FUROSEMIDE 40 MG TABLET (FP) PO SCH (06:10)
[2017-02-22] MEDS: TAMSULOSIN HCL 0.4 MG CAP.ER.24H (FP) PO SCH (09:30)
[2017-02-22] MEDS: LISINOPRIL 10 MG TABLET (FP) PO SCH (10:22)
[2017-02-22] MEDS: ASPIRIN 81 MG CHEWABLE TABLETS PO SCH (10:22)
[2017-02-22] MEDS: PRENATAL VITAMINS W/ FOLIC ACID TABLET (FP) PO SCH (10:22)
[2017-02-22] MEDS: RANITIDINE HCL 150 MG TABLET (FP) PO SCH ×2 (10:23→21:09)
[2017-02-22] MEDS: CYANOCOBALAMIN 1,000 MCG TABLET (FP) PO SCH (10:23)
[2017-02-22] MEDS: diphenhydrAMINE HCL 50 MG CAPSULE PO PRN (21:09)
[2017-02-22] MEDS: traZODone HCL 100 MG TABLET (FP) PO SCH (21:09)
[2017-02-22] MEDS: THIAMINE HCL 100 MG TABLET (FP) PO SCH (21:10)
[2017-02-23] MEDS: FUROSEMIDE 40 MG TABLET (FP) PO SCH (06:31)
[2017-02-23] MEDS: TAMSULOSIN HCL 0.4 MG CAP.ER.24H (FP) PO SCH (08:57)
[2017-02-23] MEDS: CYANOCOBALAMIN 1,000 MCG TABLET (FP) PO SCH (10:56)
[2017-02-23] MEDS: LISINOPRIL 10 MG TABLET (FP) PO SCH (10:56)
[2017-02-23] MEDS: PRENATAL VITAMINS W/ FOLIC ACID TABLET (FP) PO SCH (10:56)
[2017-02-23] MEDS: IBUPROFEN 400 MG TABLET (FP) PO PRN (10:57)
[2017-02-23] MEDS: ASPIRIN 81 MG CHEWABLE TABLETS PO SCH (10:57)
[2017-02-23] MEDS: RANITIDINE HCL 150 MG TABLET (FP) PO SCH ×2 (10:57→21:44)
[2017-02-23] MEDS ORDERED: ALBUTEROL SO4 6.7 GM HFA INHALER IH PRN (12:39)
[2017-02-23] MEDS: traZODone HCL 100 MG TABLET (FP) PO SCH (21:44)
[2017-02-23] MEDS: diphenhydrAMINE HCL 50 MG CAPSULE PO PRN (21:44)
[2017-02-23] MEDS: THIAMINE HCL 100 MG TABLET (FP) PO SCH (21:44)
[2017-02-24] MEDS: FUROSEMIDE 40 MG TABLET (FP) PO SCH (06:13)
[2017-02-24] MEDS: ALBUTEROL SO4 2.5/IPRATROPIUM 0.5 INH SOL 3 ML VIAL.NEB. NEB PRN (06:42)
[2017-02-24] MEDS: TAMSULOSIN HCL 0.4 MG CAP.ER.24H (FP) PO SCH (08:41)
[2017-02-24] MEDS: LISINOPRIL 10 MG TABLET (FP) PO SCH (10:41)
[2017-02-24] MEDS: ASPIRIN 81 MG CHEWABLE TABLETS PO SCH (10:41)
[2017-02-24] MEDS: CYANOCOBALAMIN 1,000 MCG TABLET (FP) PO SCH (10:41)
[2017-02-24] MEDS: RANITIDINE HCL 150 MG TABLET (FP) PO SCH ×2 (10:41→21:50)
[2017-02-24] MEDS: PRENATAL VITAMINS W/ FOLIC ACID TABLET (FP) PO SCH (10:42)
[2017-02-24] MEDS: MAGNESIUM HYDROX 2400MG/30ML ORAL SUSPENSION 30 ML CUP PO PRN (10:43)
[2017-02-24] MEDS: traZODone HCL 100 MG TABLET (FP) PO SCH (21:50)
[2017-02-24] MEDS: THIAMINE HCL 100 MG TABLET (FP) PO SCH (21:50)
[2017-02-24] MEDS: diphenhydrAMINE HCL 50 MG CAPSULE PO PRN (21:50)
[2017-02-25] MEDS: FUROSEMIDE 40 MG TABLET (FP) PO SCH (06:26)
[2017-02-25] MEDS: ALBUTEROL SO4 2.5/IPRATROPIUM 0.5 INH SOL 3 ML VIAL.NEB. NEB PRN (08:05)
[2017-02-25] MEDS: TAMSULOSIN HCL 0.4 MG CAP.ER.24H (FP) PO SCH (08:41)
[2017-02-25] MEDS: PRENATAL VITAMINS W/ FOLIC ACID TABLET (FP) PO SCH (10:40)
[2017-02-25] MEDS: LISINOPRIL 10 MG TABLET (FP) PO SCH (10:41)
[2017-02-25] MEDS: CYANOCOBALAMIN 1,000 MCG TABLET (FP) PO SCH (10:41)
[2017-02-25] MEDS: RANITIDINE HCL 150 MG TABLET (FP) PO SCH ×2 (10:41→21:42)
[2017-02-25] MEDS: ASPIRIN 81 MG CHEWABLE TABLETS PO SCH (10:41)
[2017-02-25] MEDS: MAG HYDROX/AL HYDROX/SIMETH 30 ML UNIT-DOSE CUP PO PRN (16:55)
[2017-02-25] MEDS ORDERED: traZODone HCL 50 MG TABLET (FP) ONE (20:02)
[2017-02-25] MEDS: diphenhydrAMINE HCL 50 MG CAPSULE PO PRN (21:42)
[2017-02-25] MEDS: THIAMINE HCL 100 MG TABLET (FP) PO SCH (21:42)
[2017-02-25] MEDS: traZODone HCL 100 MG TABLET (FP) PO SCH (21:43)
[2017-02-26] MEDS: ALBUTEROL SO4 2.5/IPRATROPIUM 0.5 INH SOL 3 ML VIAL.NEB. NEB PRN (06:41)
[2017-02-26] MEDS: FUROSEMIDE 40 MG TABLET (FP) PO SCH (07:11)
[2017-02-26] MEDS: TAMSULOSIN HCL 0.4 MG CAP.ER.24H (FP) PO SCH (09:30)
[2017-02-26] MEDS: PRENATAL VITAMINS W/ FOLIC ACID TABLET (FP) PO SCH (10:28)
[2017-02-26] MEDS: CYANOCOBALAMIN 1,000 MCG TABLET (FP) PO SCH (10:29)
[2017-02-26] MEDS: RANITIDINE HCL 150 MG TABLET (FP) PO SCH ×2 (10:29→21:39)
[2017-02-26] MEDS: LISINOPRIL 10 MG TABLET (FP) PO SCH (10:29)
[2017-02-26] MEDS: ASPIRIN 81 MG CHEWABLE TABLETS PO SCH (10:29)
[2017-02-26] MEDS ORDERED: ALBUTEROL SO4 6.7 GM HFA INHALER IH PRN (14:28)
[2017-02-26] MEDS: traZODone HCL 100 MG TABLET (FP) PO SCH (21:39)
[2017-02-26] MEDS: THIAMINE HCL 100 MG TABLET (FP) PO SCH (21:39)
[2017-02-26] MEDS: diphenhydrAMINE HCL 50 MG CAPSULE PO PRN (21:39)
[2017-02-26] MEDS: CYCLOBENZAPRINE HCL 10 MG TABLET (FP) PO SCH (21:40)
[2017-02-27] MEDS: FUROSEMIDE 20 MG TABLET (FP) PO SCH (06:28)
[2017-02-27] MEDS: MAGNESIUM HYDROX 2400MG/30ML ORAL SUSPENSION 30 ML CUP PO PRN (06:30)
[2017-02-27] MEDS: TAMSULOSIN HCL 0.4 MG CAP.ER.24H (FP) PO SCH (09:30)
[2017-02-27] MEDS: PRENATAL VITAMINS W/ FOLIC ACID TABLET (FP) PO SCH (10:31)
[2017-02-27] MEDS: LISINOPRIL 10 MG TABLET (FP) PO SCH (10:32)
[2017-02-27] MEDS: CYANOCOBALAMIN 1,000 MCG TABLET (FP) PO SCH (10:32)
[2017-02-27] MEDS: ASPIRIN 81 MG CHEWABLE TABLETS PO SCH (10:32)
[2017-02-27] MEDS: RANITIDINE HCL 150 MG TABLET (FP) PO SCH ×2 (10:32→21:24)
[2017-02-27] MEDS: ACETAMINOPHEN 325 MG TABLET (FP) PO PRN (16:35)
[2017-02-27] MEDS: THIAMINE HCL 100 MG TABLET (FP) PO SCH (21:23)
[2017-02-27] MEDS: CYCLOBENZAPRINE HCL 10 MG TABLET (FP) PO SCH (21:23)
[2017-02-27] MEDS: traZODone HCL 100 MG TABLET (FP) PO SCH (21:24)
[2017-02-27] MEDS: diphenhydrAMINE HCL 50 MG CAPSULE PO PRN ×2 (21:24→22:54)
[2017-02-28] MEDS: ALBUTEROL SO4 2.5/IPRATROPIUM 0.5 INH SOL 3 ML VIAL.NEB. NEB PRN (06:30)
[2017-02-28] MEDS: FUROSEMIDE 20 MG TABLET (FP) PO SCH (06:30)
--- NOTE | 2017-02-28 07:03 | PN ---
Psychiatric Progress Note Vital Signs: Vital Signs Period Temp Pulse Resp BP Sys/Irene Pulse Ox Last 24 Hr 94 18-20 150/76 Date of Session: 02/28/17 Chief Complaint:: Insomnia HPI: Patient addressing Alcohol and Cocaine Dependence comorbid with Substance- Induced Mood Disorder and Substance-Induced Sleep Disorder ROS: HTN, DM, Sarcoidosis, BPH Current Medications: Active Medications Generic Name Dose Route Start Last Admin Trade Name Freq PRN Reason Stop Dose Admin Acetaminophen 650 mg 02/12/17 12:35 02/27/17 16:35 Tylenol - PO 650 mg Q4H PRN Administration PAIN Al Hydroxide/Mg Hydroxide 30 ml 02/12/17 12:35 02/25/17 16:55 Mylanta Oral Suspension - PO 30 ml Q6H PRN Administration DYSPEPSIA Albuterol Sulfate 2 puff 02/23/17 12:39 Ventolin Hfa Inhaler - IH Q4H PRN SHORT OF BREATH/WHEEZING Albuterol/Ipratropium 1 amp 02/20/17 06:46 02/28/17 06:30 Duoneb - NEB 1 amp Q4H PRN Administration SHORTNESS OF BREATH Aspirin 81 mg 02/13/17 10:00 02/27/17 10:32 Asa - PO 81 mg DAILY VANDANA Administration Cyanocobalamin 1,000 mcg 02/16/17 10:00 02/27/17 10:32 Vitamin B12 - PO 1,000 mcg DAILY VANDANA Administration Cyclobenzaprine HCl 10 mg 02/26/17 22:00 02/27/17 21:23 Flexeril - PO 10 mg HS VANDANA Administration Diphenhydramine HCl 50 mg 02/12/17 12:35 02/27/17 22:54 Benadryl - PO 50 mg HSMR1 PRN Administration INSOMNIA Eucalyptus/Menthol/Phenol/Sorbitol 1 each 02/12/17 12:35 02/24/17 06:14 Cepastat Lozenge - MM 1 each Q4H PRN Administration SORE THROAT Furosemide 20 mg 02/27/17 06:00 02/28/17 06:30 Lasix - PO 20 mg 0600 VANDANA Administration Guaifenesin 10 ml 02/12/17 12:35 Robitussin Dm - PO Q6H PRN COUGH Hydroxyzine Pamoate 25 mg 02/12/17 12:35 Vistaril - PO Q4H PRN AGITATION Ibuprofen 400 mg 02/12/17 12:35 02/23/17 10:57 Motrin - PO 400 mg Q6H PRN Administration SEVERE PAIN Lisinopril 10 mg 02/12/17 14:20 02/27/17 10:32 Prinivil PO 10 mg DAILY VANDANA Administration Loperamide HCl 4 mg 02/12/17 12:35 Imodium - PO Q6H PRN DIARRHEA Magnesium Citrate 300 ml 02/12/17 12:35 02/17/17 14:37 Citroma - PO 300 ml Q48H PRN Administration CONSTIPATION Magnesium Hydroxide 30 ml 02/12/17 12:35 02/27/17 06:30 Milk Of Magnesia - PO 30 ml DAILY PRN Administration CONSTIPATION Metformin HCl 850 mg 02/16/17 17:30 02/27/17 16:35 Glucophage - PO 850 mg BID@0700,1630 VANDANA Administration Nitroglycerin 0.4 mg 02/12/17 12:45 Nitrostat - SL PRN PRN PAIN Multivit/Folic Acid/Iron 1 tab 02/13/17 10:00 02/27/17 10:31 Vitamins (Sjr) - PO 1 tab DAILY VANDANA Administration Pseudoephedrine/Triprolidine 1 combo 02/12/17 12:35 02/24/17 06:12 Actifed - PO 1 combo TID PRN Administration NASAL CONGESTION Ranitidine HCl 150 mg 02/12/17 22:00 02/27/17 21:24 Zantac - PO 150 mg BID VANDANA Administration Tamsulosin HCl 0.4 mg 02/12/17 12:45 02/27/17 09:30 Flomax - PO 0.4 mg DAILY@0830 VANDANA Administration Thiamine HCl 100 mg 02/12/17 22:00 02/27/17 21:23 Vitamin B1 - PO 100 mg HS [facility] Administration Trazodone HCl 150 mg 02/28/17 22:00 Desyrel - PO HS [facility] Medication(s) Change(s): Start Trazadone 150 mg po HS for insomnia Current Side Effect: No Lab tests ordered: Yes Lab tests reviewed: Yes Provider note:: Patient reports experiencing difficulty to sleep. 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 Requests that med dosage be increased Total face to face time:: 25 Mental Status Exam - Mental Status Exam Alert and Oriented to: Time, Place, Person Cognitive Function: Fair Patient Appearance: Well Groomed Mood: Hopeful, Euthymic Patient Behavior: Cooperative Speech Pattern: Clear Voice Loudness: Normal Thought Process: Intact, Goal Oriented Thought Disorder: Not Present Hallucinations: Denies Suicidal Ideation: Denies Homicidal Ideation: Denies Insight/Judgement: Fair Sleep: Poorly Appetite: Good Muscle strength/Tone: Normal Gait/Station: Normal Psychiatric Treatment Plan - Problem List (1) Alcohol dependence Current Visit: No (2) Cocaine dependence Current Visit: No Qualifiers: Substance use status: uncomplicated Qualified Code(s): F14.20 - Cocaine dependence, uncomplicated (3) Substance induced mood disorder Current Visit: Yes (4) Substance-induced sleep disorder Current Visit: Yes (5) old fx of right ribs Current Visit: No (6) s/p surg of dislocation of right patella Current Visit: No (7) Diabetes mellitus Current Visit: No Qualifiers: Diabetes mellitus type: type 2 Diabetes mellitus complication status: without complication Diabetes mellitus local intermodal truck driver insulin use: without penitentiary use Qualified Code(s): E11.9 - Type 2 diabetes mellitus without complications (8) Essential hypertension Current Visit: No (9) sarcoidosis on remission Current Visit: No (10) Asthma Current Visit: No Qualifiers: Asthma severity: moderate persistent Asthma complication type: with acute exacerbation Qualified Code(s): J45.41 - Moderate persistent asthma with (acute) exacerbation Comment: patient has respiratory distress, shortness of breath, dry cough, o2 4 L via mask, ambulance been called, rule out pleural effusion (11) BPH (benign prostatic hyperplasia) Current Visit: Yes Initial treatment plan: 1) Discontinue Trazadone 100 mg po HS. 2) Start Trazadone 150 mg po HS for insomnia. 3) Monitor progress
[2017-02-28] MEDS: TAMSULOSIN HCL 0.4 MG CAP.ER.24H (FP) PO SCH (08:35)
[2017-02-28] MEDS: RANITIDINE HCL 150 MG TABLET (FP) PO SCH ×2 (10:35→21:23)
[2017-02-28] MEDS: PRENATAL VITAMINS W/ FOLIC ACID TABLET (FP) PO SCH (10:35)
[2017-02-28] MEDS: LISINOPRIL 10 MG TABLET (FP) PO SCH (10:35)
[2017-02-28] MEDS: ASPIRIN 81 MG CHEWABLE TABLETS PO SCH (10:35)
[2017-02-28] MEDS: CYANOCOBALAMIN 1,000 MCG TABLET (FP) PO SCH (10:35)
[2017-02-28] MEDS: CYCLOBENZAPRINE HCL 10 MG TABLET (FP) PO SCH (21:22)
[2017-02-28] MEDS: THIAMINE HCL 100 MG TABLET (FP) PO SCH (21:22)
[2017-02-28] MEDS: traZODone HCL 50 MG TABLET (FP) PO SCH (21:23)
[2017-03-01] MEDS: FUROSEMIDE 20 MG TABLET (FP) PO SCH (06:24)
[2017-03-01] MEDS: TAMSULOSIN HCL 0.4 MG CAP.ER.24H (FP) PO SCH (09:21)
[2017-03-01] MEDS: PRENATAL VITAMINS W/ FOLIC ACID TABLET (FP) PO SCH (10:20)
[2017-03-01] MEDS: CYANOCOBALAMIN 1,000 MCG TABLET (FP) PO SCH (10:20)
[2017-03-01] MEDS: LISINOPRIL 10 MG TABLET (FP) PO SCH (10:21)
[2017-03-01] MEDS: ASPIRIN 81 MG CHEWABLE TABLETS PO SCH (10:21)
[2017-03-01] MEDS: RANITIDINE HCL 150 MG TABLET (FP) PO SCH ×2 (10:22→21:36)
[2017-03-01] MEDS: ACETAMINOPHEN 325 MG TABLET (FP) PO PRN (15:55)
[2017-03-01] MEDS: THIAMINE HCL 100 MG TABLET (FP) PO SCH (21:34)
[2017-03-01] MEDS: traZODone HCL 50 MG TABLET (FP) PO SCH (21:35)
[2017-03-01] MEDS: CYCLOBENZAPRINE HCL 10 MG TABLET (FP) PO SCH (21:35)
[2017-03-01] MEDS: diphenhydrAMINE HCL 50 MG CAPSULE PO PRN (21:36)
[2017-03-02] MEDS: FUROSEMIDE 20 MG TABLET (FP) PO SCH (06:28)
[2017-03-02] MEDS: TAMSULOSIN HCL 0.4 MG CAP.ER.24H (FP) PO SCH (08:40)
[2017-03-02] MEDS: LISINOPRIL 10 MG TABLET (FP) PO SCH (10:40)
[2017-03-02] MEDS: CYANOCOBALAMIN 1,000 MCG TABLET (FP) PO SCH (10:40)
[2017-03-02] MEDS: RANITIDINE HCL 150 MG TABLET (FP) PO SCH ×2 (10:40→21:47)
[2017-03-02] MEDS: PRENATAL VITAMINS W/ FOLIC ACID TABLET (FP) PO SCH (10:40)
[2017-03-02] MEDS: ASPIRIN 81 MG CHEWABLE TABLETS PO SCH (10:40)
[2017-03-02] MEDS: diphenhydrAMINE HCL 50 MG CAPSULE PO PRN (21:45)
[2017-03-02] MEDS: THIAMINE HCL 100 MG TABLET (FP) PO SCH (21:45)
[2017-03-02] MEDS: CYCLOBENZAPRINE HCL 10 MG TABLET (FP) PO SCH (21:45)
[2017-03-02] MEDS: traZODone HCL 50 MG TABLET (FP) PO SCH (21:45)
[2017-03-03] MEDS: FUROSEMIDE 20 MG TABLET (FP) PO SCH (06:58)
[2017-03-03] MEDS: TAMSULOSIN HCL 0.4 MG CAP.ER.24H (FP) PO SCH (09:20)
[2017-03-03] MEDS: ASPIRIN 81 MG CHEWABLE TABLETS PO SCH (10:19)
[2017-03-03] MEDS: LISINOPRIL 10 MG TABLET (FP) PO SCH (10:19)
[2017-03-03] MEDS: CYANOCOBALAMIN 1,000 MCG TABLET (FP) PO SCH (10:19)
[2017-03-03] MEDS: RANITIDINE HCL 150 MG TABLET (FP) PO SCH ×2 (10:19→21:42)
[2017-03-03] MEDS: PRENATAL VITAMINS W/ FOLIC ACID TABLET (FP) PO SCH (10:19)
[2017-03-03] MEDS: THIAMINE HCL 100 MG TABLET (FP) PO SCH (21:41)
[2017-03-03] MEDS: CYCLOBENZAPRINE HCL 10 MG TABLET (FP) PO SCH (21:41)
[2017-03-03] MEDS: diphenhydrAMINE HCL 50 MG CAPSULE PO PRN (21:41)
[2017-03-03] MEDS: traZODone HCL 50 MG TABLET (FP) PO SCH (21:42)
[2017-03-04] MEDS: FUROSEMIDE 20 MG TABLET (FP) PO SCH (06:56)
[2017-03-04] MEDS: TAMSULOSIN HCL 0.4 MG CAP.ER.24H (FP) PO SCH (07:31)
[2017-03-04] MEDS: MAGNESIUM HYDROX 2400MG/30ML ORAL SUSPENSION 30 ML CUP PO PRN (08:41)
[2017-03-04] MEDS: ASPIRIN 81 MG CHEWABLE TABLETS PO SCH (10:15)
[2017-03-04] MEDS: RANITIDINE HCL 150 MG TABLET (FP) PO SCH ×2 (10:15→21:24)
[2017-03-04] MEDS: PRENATAL VITAMINS W/ FOLIC ACID TABLET (FP) PO SCH (10:16)
[2017-03-04] MEDS: CYANOCOBALAMIN 1,000 MCG TABLET (FP) PO SCH (10:16)
[2017-03-04] MEDS: LISINOPRIL 10 MG TABLET (FP) PO SCH (10:16)
[2017-03-04] MEDS: diphenhydrAMINE HCL 50 MG CAPSULE PO PRN (21:24)
[2017-03-04] MEDS: THIAMINE HCL 100 MG TABLET (FP) PO SCH (21:24)
[2017-03-04] MEDS: CYCLOBENZAPRINE HCL 10 MG TABLET (FP) PO SCH (21:24)
[2017-03-04] MEDS: traZODone HCL 50 MG TABLET (FP) PO SCH (21:25)
[2017-03-05] MEDS: FUROSEMIDE 20 MG TABLET (FP) PO SCH (06:13)
[2017-03-05] MEDS: ALBUTEROL SO4 2.5/IPRATROPIUM 0.5 INH SOL 3 ML VIAL.NEB. NEB PRN (06:54)
[2017-03-05 07:02] VITALS: BP 132/81; PULSE 89; TEMP 98.4
--- NOTE | 2017-03-05 08:19 | PN ---
Psychiatric Progress Note Vital Signs: Vital Signs Period Temp Pulse Resp BP Sys/Irene Pulse Ox Last 24 Hr 98.4 F 89-96 18-20 112-132/79-81 Date of Session: 03/05/17 Chief Complaint:: Discharge Note HPI: Patient addressing Alcohol and Cocaine Dependence comorbid with Substance- Induced Mood Disorder and Substance-Induced Sleep Disorder ROS: Asthma/COPD, HTN, DM, GERD, Sleep Apnea, Sarcoidosis were medically managed Current Medications: Active Medications Generic Name Dose Route Start Last Admin Trade Name Freq PRN Reason Stop Dose Admin Acetaminophen 650 mg 02/12/17 12:35 03/01/17 15:55 Tylenol - PO 650 mg Q4H PRN Administration PAIN Al Hydroxide/Mg Hydroxide 30 ml 02/12/17 12:35 02/25/17 16:55 Mylanta Oral Suspension - PO 30 ml Q6H PRN Administration DYSPEPSIA Albuterol Sulfate 2 puff 02/23/17 12:39 Ventolin Hfa Inhaler - IH Q4H PRN SHORT OF BREATH/WHEEZING Aspirin 81 mg 02/13/17 10:00 03/04/17 10:15 Asa - PO 81 mg DAILY VANDANA Administration Cyanocobalamin 1,000 mcg 02/16/17 10:00 03/04/17 10:16 Vitamin B12 - PO 1,000 mcg DAILY VANDANA Administration Cyclobenzaprine HCl 10 mg 02/26/17 22:00 03/04/17 21:24 Flexeril - PO 10 mg HS VANDANA Administration Diphenhydramine HCl 50 mg 02/12/17 12:35 03/04/17 21:24 Benadryl - PO 50 mg HSMR1 PRN Administration INSOMNIA Eucalyptus/Menthol/Phenol/Sorbitol 1 each 02/12/17 12:35 02/24/17 06:14 Cepastat Lozenge - MM 1 each Q4H PRN Administration SORE THROAT Furosemide 20 mg 02/27/17 06:00 03/05/17 06:13 Lasix - PO Not Given 0600 VANDANA Guaifenesin 10 ml 02/12/17 12:35 Robitussin Dm - PO Q6H PRN COUGH Hydroxyzine Pamoate 25 mg 02/12/17 12:35 Vistaril - PO Q4H PRN AGITATION Ibuprofen 400 mg 02/12/17 12:35 02/23/17 10:57 Motrin - PO 400 mg Q6H PRN Administration SEVERE PAIN Lisinopril 10 mg 02/12/17 14:20 03/04/17 10:16 Prinivil PO 10 mg DAILY VANDANA Administration Loperamide HCl 4 mg 02/12/17 12:35 Imodium - PO Q6H PRN DIARRHEA Magnesium Citrate 300 ml 02/12/17 12:35 02/17/17 14:37 Citroma - PO 300 ml Q48H PRN Administration CONSTIPATION Magnesium Hydroxide 30 ml 02/12/17 12:35 03/04/17 08:41 Milk Of Magnesia - PO 30 ml DAILY PRN Administration CONSTIPATION Metformin HCl 850 mg 02/16/17 17:30 03/05/17 07:07 Glucophage - PO 850 mg BID@0700,1630 VANDANA Administration Nitroglycerin 0.4 mg 02/12/17 12:45 Nitrostat - SL PRN PRN PAIN Multivit/Folic Acid/Iron 1 tab 02/13/17 10:00 03/04/17 10:16 Vitamins (Sjr) - PO 1 tab DAILY VANDANA Administration Pseudoephedrine/Triprolidine 1 combo 02/12/17 12:35 02/24/17 06:12 Actifed - PO 1 combo TID PRN Administration NASAL CONGESTION Ranitidine HCl 150 mg 02/12/17 22:00 03/04/17 21:24 Zantac - PO 150 mg BID VANDANA Administration Tamsulosin HCl 0.4 mg 02/12/17 12:45 03/04/17 07:31 Flomax - PO 0.4 mg DAILY@0830 VANDANA Administration Thiamine HCl 100 mg 02/12/17 22:00 03/04/17 21:24 Vitamin B1 - PO 100 mg HS VANDANA Administration Trazodone HCl 150 mg 02/28/17 22:00 03/04/17 21:25 Desyrel - PO 150 mg HS VANDANA Administration Current Side Effect: No Lab tests ordered: Yes Lab tests reviewed: Yes Provider note:: Patient has completed this program today. He has met his treatment goals and will continue to address his issues in outpatient treatment at [facility]. He verbalized understanding of the negative consequences of his addiction and recognized the need to make significant changes in his life style in order to maintain sobriety. He responded well to Trazadone 150 mg po HS for insomnia. Script for 30 days supply of that medication is electronically transmitted to [facility] at [address] [place] [address]. He is stable for discharge today Total face to face time:: 35 Mental Status Exam - Mental Status Exam Alert and Oriented to: Time, Place, Person Cognitive Function: Fair Patient Appearance: Well Groomed Mood: Hopeful, Euthymic Affect: Appropriate Patient Behavior: Cooperative Speech Pattern: Clear Voice Loudness: Normal Thought Process: Intact, Goal Oriented Thought Disorder: Not Present Hallucinations: Denies Suicidal Ideation: Denies Homicidal Ideation: Denies Insight/Judgement: Fair Sleep: Fair Appetite: Good Muscle strength/Tone: Normal Gait/Station: Normal Psychiatric Treatment Plan - Problem List (1) Alcohol dependence Current Visit: No (2) Cocaine dependence Current Visit: No Qualifiers: Substance use status: uncomplicated Qualified Code(s): F14.20 - Cocaine dependence, uncomplicated (3) Substance induced mood disorder Current Visit: Yes (4) Substance-induced sleep disorder Current Visit: Yes (5) old fx of right ribs Current Visit: No (6) s/p surg of dislocation of right patella Current Visit: No (7) Diabetes mellitus Current Visit: No Qualifiers: Diabetes mellitus type: type 2 Diabetes mellitus complication status: without complication 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 Qualified Code(s): E11.9 - Type 2 diabetes mellitus without complications (8) Essential hypertension Current Visit: No (9) sarcoidosis on remission Current Visit: No (10) Asthma Current Visit: No Qualifiers: Asthma severity: moderate persistent Asthma complication type: with acute exacerbation Qualified Code(s): J45.41 - Moderate persistent asthma with (acute) exacerbation Comment: patient has respiratory distress, shortness of breath, dry cough, o2 4 L via mask, ambulance been called, rule out pleural effusion (11) BPH (benign prostatic hyperplasia) Current Visit: Yes Initial treatment plan: Patient is discharged today and referred to [facility] for outpatient treatment
[2017-03-05] MEDS: TAMSULOSIN HCL 0.4 MG CAP.ER.24H (FP) PO SCH (08:39)
[2017-03-05] MEDS ORDERED: PT OWN MED DRAWER 7, Y5N ONE ×2 (09:13→09:44)
[2017-03-05] MEDS: PRENATAL VITAMINS W/ FOLIC ACID TABLET (FP) PO SCH (09:39)
[2017-03-05] MEDS: CYANOCOBALAMIN 1,000 MCG TABLET (FP) PO SCH (09:39)
[2017-03-05] MEDS: RANITIDINE HCL 150 MG TABLET (FP) PO SCH (09:41)
[2017-03-05] MEDS: ASPIRIN 81 MG CHEWABLE TABLETS PO SCH (09:41)
[2017-03-05] MEDS: LISINOPRIL 10 MG TABLET (FP) PO SCH (09:41)
== END 2017-03-05 09:50 | disposition home or self-care (01) | DRG 895 ==
LOC: YASAS 10:34 → Y3W 13:05
PROVIDERS: ADMIT Psychiatry & Neurology Psychiatry; ATTEND Psychiatry & Neurology Psychiatry
PROC: HZ42ZZZ Group Counseling for Substance Abuse Treatment, Cognitive-Behavioral (ICD-10-PCS; principal; 2017-02-12)
DX: F10.20 Alcohol dependence, uncomplicated (principal); F14.20 Cocaine dependence, uncomplicated; F19.282 Other psychoactive substance dependence with psychoactive substance-induced sleep disorder; J45.41 Moderate persistent asthma with (acute) exacerbation; F19.24 Other psychoactive substance dependence with psychoactive substance-induced mood disorder; J44.9 Chronic obstructive pulmonary disease, unspecified; I10 Essential (primary) hypertension; E11.9 Type 2 diabetes mellitus without complications; K21.9 Gastro-esophageal reflux disease without esophagitis; G47.30 Sleep apnea, unspecified; D86.9 Sarcoidosis, unspecified; N40.0 Benign prostatic hyperplasia without lower urinary tract symptoms
CPT/HCPCS: 81003; 93005; 93010; 94640